=== PATIENT | female | born 1950 | race Caucasian/White ===

== ENCOUNTER → 2024-10-07 10:05 | Outpatient (REF) | payer MEDICARE, OTHER, SELFPAY ==
[2024-10-07 12:02] LABS: Blood Urea Nitrogen 16 mg/dl (7-17); Calcium 9.7 mg/dl (8.4-10.2); Carbon Dioxide 31 mmol/L (22-30); Chloride 105 mmol/L (98-107); Glucose 98 mg/dl (70-99); Potassium 4.1 mmol/L (3.5-5.1); Sodium 142 mmol/L (135-145); eGFR > 60.00
== END ==
LOC: SDSPAT 10:05
PROVIDERS: ATTENDING PHYSICIAN Obstetrics & Gynecology; FAMILY PHYSICIAN Thoracic Surgery (Cardiothoracic Vascular Surgery)
DX: N95.0 Postmenopausal bleeding (principal)
CPT/HCPCS: 36415; 71046; 80048; 93005

== ENCOUNTER 2024-10-25 06:19 | Day surgery (SDC) | payer MEDICARE, OTHER, SELFPAY ==
[2024-10-07 13:44] VITALS: BMI 35.1
[2024-10-25] VITALS (8 sets, daily range): BP systolic 129–156; BP diastolic 54–85; BMI 35.1
[2024-10-25] MEDS: NORMOSOL-R/PLASMALYTE-A 1000 IV (09:00)
[2024-10-25] MEDS: TORADOL 15 MG IV (11:40)
== END 2024-10-25 13:06 | disposition home or self-care (01) ==
LOC: SDS 06:19
PROVIDERS: ATTENDING PHYSICIAN Obstetrics & Gynecology
DX: D25.9 Leiomyoma of uterus, unspecified (principal); N95.0 Postmenopausal bleeding
CPT/HCPCS: 58558; 88305